=== PATIENT | female | born 1965 | race Caucasian/White ===

== ENCOUNTER 2016-11-16 16:50 | Emergency (ER) | payer OTHER ==
[2016-11-16 18:27] LABS: BASOPHIL 0.3 % (0-2); EOSINOPHIL 3.3 % (0-5); HCT 37.2 % (37.0-47.0); HGB 11.2 g/dl (12.5-16.0); LYMPHOCYTE 27.3 % (15-48); MCHC 30.1 g/dL (32.0-36.0); MCV 76.5 fL (78.0-100.0); MONOCYTE 10.4 % (0-12); NEUTROPHIL 58.7 % (41-80); PLT 292 K/uL (150-400); RBC 4.86 M/uL (4.20-5.40); RDW 19.2 % (11.5-14.0)
[2016-11-16 18:32] LABS: WBC 6.3 K/uL (4.0-10.5)
[2016-11-16 18:38] LABS: INR 1.07 (0.9-1.2); PROTHROMBIN TIME 13.5 SECONDS (11.7-14.0); PTT 29.2 SECONDS (23.2-31.4)
[2016-11-16 18:42] LABS: ALBUMIN 3.7 g/dL (3.5-5.0); BILIRUBIN - TOTAL 0.3 mg/dL (0.1-1.0); CREATININE 0.8 mg/dL (0.5-1.0); GLOBULIN (CALCULATION) 2.5 g/dL (2.2-4.2); MAGNESIUM 2.66 mg/dL (1.40-2.10); POTASSIUM 4.8 mmol/L (3.5-5.1); TOTAL PROTEIN 6.2 g/dL (6.4-8.3)
[2016-11-16 18:43] LABS: CKMB 1.58 ng/mL (0.97-4.94); MYOGLOBIN 25 ng/mL (26-65); PRO-BNP 227 pg/mL (0-125); TROPONIN T < 0.010 ng/mL
== END 2016-11-16 19:04 | disposition home or self-care (01) ==
LOC: FER 16:50
PROVIDERS: Emergency Medicine
DX: R07.89 Other chest pain (principal); Z88.0 Allergy status to penicillin; Z88.5 Allergy status to narcotic agent; Z88.6 Allergy status to analgesic agent
CPT/HCPCS: 36415; 71010; 80053; 82550; 82553; 83735; 83874; 83880; 84484; 85025; 85610; 85730; 93005

== ENCOUNTER 2020-09-29 20:45 | Emergency (ER) | payer OTHER ==
[~2020-09-29 20:45] MED LIST: ACETAMINOPHEN325 MG PO; BUSPAR5 MG PO; DOK PLUS TABLE1 EACH PO; ELIQUIS5 MG PO; FEOSOL325 MG PO; FLORASTOR250 MG PO; FOLIC ACID1 MG PO; HYDROCODON-ACE1 EAC2 PO; LASIX40 MG PO; LEXAPRO 10MG TA10 MG PO; MELATONIN10 M2 PO; METRONIDAZOLE500 MG PO; NEURONTIN300 MG PO; NORCO 5-325 TA1 EACH PO; PERCOCET 10/321 EACH PO; PERCOCET 5-3251 EACH PO; PREDNISONE 20MG20 MG PO; PROTONIX 40MG T40 MG PO; REGLAN10 MG PO; VIBRAMYCIN100 MG PO; VIRT-PHOS 250250 MG PO; VITAMIN B-121000 MC1 PO; ZOFRAN4 MG PO
[2020-09-29] MEDS ORDERED: NORCO 5-325 TA1 EACH PO (22:34)
== END 2020-09-29 22:53 | disposition home or self-care (01) ==
LOC: FER 20:45
DX: S46.912A Strain of unspecified muscle, fascia and tendon at shoulder and upper arm level, left arm, initial encounter (principal); I10 Essential (primary) hypertension; J44.9 Chronic obstructive pulmonary disease, unspecified; W50.0XXA Accidental hit or strike by another person, initial encounter; Y92.009 Unspecified place in unspecified non-institutional (private) residence as the place of occurrence of the external cause
CPT/HCPCS: 73030

== ENCOUNTER 2020-10-05 20:00 | Emergency (ER) | payer OTHER ==
[2020-10-05 21:38] LABS: BILIRUBIN NEGATIVE (NEGATIVE); BLOOD NEGATIVE Ery/uL (NEGATIVE); CLARITY CLEAR (CLEAR); COLOR YELLOW (YELLOW); GLUCOSE (U) NORMAL (NORMAL); LEUKOCYTES 2+ Leu/uL (NEGATIVE); NITRITE NEGATIVE (NEGATIVE); PROTEIN NEGATIVE (NEGATIVE); SPECIFIC GRAVITY >=1.030 (1.001-1.030); pH 6.5 (5.0-9.0)
[2020-10-05 21:49] LABS: AMORPHOUS URATES CRYSTALS LARGE
[2020-10-05 21:50] LABS: URINARY RBC RARE; URINARY WBC 20-50
[2020-10-05 21:51] LABS: BACTERIA TRACE
[2020-10-05] MEDS ORDERED: NORCO 5-325 TA1 EACH PO (22:17)
[2020-10-05] MEDS ORDERED: MACROBID100 MG PO (22:20)
== END 2020-10-05 22:36 | disposition home or self-care (01) ==
LOC: FER 20:00
PROVIDERS: Emergency Medicine
DX: S20.223A Contusion of bilateral back wall of thorax, initial encounter (principal); S30.0XXA Contusion of lower back and pelvis, initial encounter; G89.29 Other chronic pain; N39.0 Urinary tract infection, site not specified; Z88.0 Allergy status to penicillin; Z88.5 Allergy status to narcotic agent; Z88.6 Allergy status to analgesic agent; Z86.73 Personal history of transient ischemic attack (TIA), and cerebral infarction without residual deficits; Y04.2XXA Assault by strike against or bumped into by another person, initial encounter
CPT/HCPCS: 72128; 72131; 81001

== ENCOUNTER 2020-10-15 18:07 | Day surgery (SDCO) | payer OTHER ==
[~2020-10-15 18:07] MED LIST changes: +MACROBID100 MG PO
[2020-10-15 18:36] LABS: BASOPHIL 0.6 % (0-2); EOSINOPHIL 2.4 % (0-5); HCT 39.6 % (37.0-47.0); HGB 11.2 g/dl (12.5-16.0); LYMPHOCYTE 29.2 % (15-48); MCH 22.7 pg (25.0-31.0); MCHC 28.3 g/dL (32.0-36.0); MCV 80.3 fL (78.0-100.0); MONOCYTE 9.2 % (0-12); MPV 10.8 fL (6.0-9.5); NRBC 0; PLT 235 K/uL (150-400); RBC 4.93 M/uL (4.20-5.40); RDW 17.7 % (11.5-14.0); WBC 6.7 K/uL (4.0-10.5)
[2020-10-15 18:54] LABS: ALBUMIN 3.3 g/dL (3.4-5.0); ALKALINE PHOSHATASE 254 U/L (46-116); ALT 99 U/L (14-59); AST 26 U/L (15-37); BILIRUBIN - TOTAL 0.3 mg/dL (0.2-1.0); BUN 18 mg/dL (7-18); BUN/CREAT RATIO (CALC) 28.1 RATIO; C-REACTIVE PROTEIN <0.20 mg/dL (<=0.90); CHLORIDE 106 mmol/L (98-107); CO2 (BICARBONATE) 29 mmol/L (21-32); CREATININE 0.64 mg/dL (0.51-0.95); GLUCOSE 93 mg/dL (74-106); LDH 153 U/L (81-234); MAGNESIUM 2.8 mg/dL (1.8-2.4); POTASSIUM 5.4 mmol/L (3.5-5.1); TOTAL PROTEIN 7.3 g/dL (6.4-8.2)
[2020-10-15 19:04] LABS: LACTIC ACID 0.7 mmol/L (0.4-1.9)
[2020-10-15 19:10] LABS: PTT 29.6 SECONDS (22.2-34.7)
[2020-10-15 19:11] LABS: INR 1.03 (0.9-1.2); PROTHROMBIN TIME 12.8 SECONDS (11.4-13.6)
[2020-10-15 20:06] LABS: CORONAVIRUS 2019 SARS-COV-2 NEGATIVE (NEGATIVE); INFLUENZA A NAA NEGATIVE (NEGATIVE)
[2020-10-15 20:11] LABS: BILIRUBIN NEGATIVE (NEGATIVE); BLOOD NEGATIVE Ery/uL (NEGATIVE); CLARITY SLIGHTLY HAZY (CLEAR); COLOR YELLOW (YELLOW); GLUCOSE (U) NORMAL (NORMAL); LEUKOCYTES 2+ Leu/uL (NEGATIVE); NITRITE NEGATIVE (NEGATIVE); PROTEIN NEGATIVE (NEGATIVE)
[2020-10-15 20:12] LABS: AMPHETAMINES NEGATIVE (NEGATIVE); BARBITURATES NEGATIVE (NEGATIVE); ECSTASY (MDMA) NEGATIVE (NEGATIVE); MARIJUANA (THC) NEGATIVE (NEGATIVE); METHADONE NEGATIVE (NEGATIVE); OPIATES NEGATIVE (NEGATIVE); OXYCODONE NEGATIVE (NEGATIVE)
[2020-10-15 20:15] LABS: BACTERIA 1+
[2020-10-16 05:13] LABS: BASOPHIL 0.6 % (0-2); EOSINOPHIL 2.7 % (0-5); HCT 34.1 % (37.0-47.0); HGB 9.8 g/dl (12.5-16.0); LYMPHOCYTE 32.6 % (15-48); MCH 22.7 pg (25.0-31.0); MCHC 28.7 g/dL (32.0-36.0); MCV 78.9 fL (78.0-100.0); MONOCYTE 11.9 % (0-12); MPV 11.3 fL (6.0-9.5); NEUTROPHIL 51.9 % (41-80); NRBC 0; PLT 208 K/uL (150-400); RBC 4.32 M/uL (4.20-5.40); RDW 17.5 % (11.5-14.0); WBC 6.2 K/uL (4.0-10.5)
[2020-10-16 05:36] LABS: BUN/CREAT RATIO (CALC) 24.6 RATIO; CREATININE 0.65 mg/dL (0.51-0.95); POTASSIUM 4.6 mmol/L (3.5-5.1)
[2020-10-16] MEDS ORDERED: COLACE100 MG PO (22:53)
[2020-10-16] MEDS ORDERED: HYDROCODON-ACE1 EAC2 PO (22:54)
[2020-10-16] MEDS ORDERED: MELATONIN5 M2 PO (22:55)
--- NOTE | 2020-10-17 09:55 | NUR ---
10/17 Ms. Domínguez lives with her aunt. She does not have any DME. She does not have a PCC. A referral was made to [facility] for a rw. Brit Vela, torrie aiken scheduled an appointment with Domonique Jasmine NP, for 10/27/20. - Report given to MS Sangita, RN.
[2020-10-17] MEDS ORDERED: PERCOCET 10-321 EACH PO (10:11)
[2020-10-17] MEDS ORDERED: ASPIRIN EC81 MG PO (10:14)
[2020-10-17] MEDS ORDERED: CEFDINIR300 MG PO (10:14)
== END 2020-10-17 13:00 | disposition home or self-care (01) ==
LOC: FER 18:07 → FTCU 10-16 00:42 → FMS 10-17 05:29
PROVIDERS: Emergency Medicine; Nurse Practitioner; ADMIT Internal Medicine
DX: G45.9 Transient cerebral ischemic attack, unspecified (principal); G89.4 Chronic pain syndrome; I69.320 Aphasia following cerebral infarction; K21.9 Gastro-esophageal reflux disease without esophagitis; K56.41 Fecal impaction; M19.90 Unspecified osteoarthritis, unspecified site; N39.0 Urinary tract infection, site not specified; F31.9 Bipolar disorder, unspecified; R47.01 Aphasia; Z87.11 Personal history of peptic ulcer disease; Z87.891 Personal history of nicotine dependence; Z90.49 Acquired absence of other specified parts of digestive tract; Z90.710 Acquired absence of both cervix and uterus; Z98.1 Arthrodesis status; Z98.890 Other specified postprocedural states; Z96.652 Presence of left artificial knee joint; Z20.822 Contact with and (suspected) exposure to COVID-19; Z96.612 Presence of left artificial shoulder joint; Z98.84 Bariatric surgery status; Z82.0 Family history of epilepsy and other diseases of the nervous system; Z83.6 Family history of other diseases of the respiratory system; Z84.89 Family history of other specified conditions; Z82.49 Family history of ischemic heart disease and other diseases of the circulatory system; Z88.0 Allergy status to penicillin; Z88.6 Allergy status to analgesic agent; Z88.8 Allergy status to other drugs, medicaments and biological substances; Z79.899 Other long term (current) drug therapy; Z91.048 Other nonmedicinal substance allergy status; Z86.718 Personal history of other venous thrombosis and embolism
CPT/HCPCS: 36415; 36600; 70450; 70551; 71045; 80048; 80053; 80305; 81001; 82803; 82962; 83605; 83615; 83735; 84145; 84484; 85025; 85610; 85730; 86140; 87040; 87088; 93005; 96365; 96372; 96375; 97116; 97163; 97530-GP; G0378; G0480; J0696; J1170; J2270; J2405; J3010; J3030; J3370; J7030; J7040; J7050; Q9967; U0002

== ENCOUNTER 2020-12-14 14:27 | Emergency (ER) | payer OTHER ==
[~2020-12-14 14:27] MED LIST changes: +ASPIRIN EC81 MG PO; +CEFDINIR300 MG PO; +COLACE100 MG PO; +MELATONIN5 M2 PO; +PERCOCET 10-321 EACH PO
[2020-12-14] MEDS ORDERED: ROBAXIN500 MG PO (15:55)
== END 2020-12-14 17:42 | disposition home or self-care (01) ==
LOC: FER 14:27
DX: M54.5 Low back pain (principal); G89.29 Other chronic pain; J44.9 Chronic obstructive pulmonary disease, unspecified; F17.210 Nicotine dependence, cigarettes, uncomplicated; Z86.718 Personal history of other venous thrombosis and embolism; Z86.73 Personal history of transient ischemic attack (TIA), and cerebral infarction without residual deficits; Z87.19 Personal history of other diseases of the digestive system; Z98.890 Other specified postprocedural states; Z88.0 Allergy status to penicillin; Z88.2 Allergy status to sulfonamides; Z88.6 Allergy status to analgesic agent; Z88.5 Allergy status to narcotic agent
CPT/HCPCS: 99283

== ENCOUNTER 2020-12-21 01:49 | Emergency (ER) | payer OTHER ==
[~2020-12-21 01:49] MED LIST changes: +ROBAXIN500 MG PO
[2020-12-21 03:47] LABS: BILIRUBIN NEGATIVE (NEGATIVE); BLOOD NEGATIVE Ery/uL (NEGATIVE); CLARITY CLEAR (CLEAR); COLOR YELLOW (YELLOW); GLUCOSE (U) NORMAL (NORMAL); LEUKOCYTES 1+ Leu/uL (NEGATIVE); NITRITE NEGATIVE (NEGATIVE); PROTEIN NEGATIVE (NEGATIVE); SPECIFIC GRAVITY >=1.030 (1.001-1.030); pH 5.5 (5.0-9.0)
[2020-12-21 03:51] LABS: AMPHETAMINES NEGATIVE (NEGATIVE); BARBITURATES NEGATIVE (NEGATIVE); ECSTASY (MDMA) NEGATIVE (NEGATIVE); MARIJUANA (THC) NEGATIVE (NEGATIVE); METHADONE NEGATIVE (NEGATIVE); OPIATES NEGATIVE (NEGATIVE); OXYCODONE NEGATIVE (NEGATIVE)
[2020-12-21 03:55] LABS: BACTERIA 2+; URINARY WBC 20-50
[2020-12-21 04:08] LABS: BASOPHIL 0.6 % (0-2); EOSINOPHIL 4.6 % (0-5); HCT 31.8 % (37.0-47.0); HGB 9.1 g/dl (12.5-16.0); MCH 21.5 pg (25.0-31.0); MCHC 28.6 g/dL (32.0-36.0); MCV 75.2 fL (78.0-100.0); MONOCYTE 12.9 % (0-12); MPV 11.2 fL (6.0-9.5); NEUTROPHIL 50.5 % (41-80); NRBC 0; PLT 187 K/uL (150-400); RBC 4.23 M/uL (4.20-5.40); RDW 17.9 % (11.5-14.0); WBC 4.8 K/uL (4.0-10.5)
[2020-12-21 04:17] LABS: ALBUMIN 3.4 g/dL (3.4-5.0); BILIRUBIN - TOTAL 0.2 mg/dL (0.2-1.0); BUN/CREAT RATIO (CALC) 29.7 RATIO; CREATININE 0.64 mg/dL (0.51-0.95); POTASSIUM 4.2 mmol/L (3.5-5.1); TOTAL PROTEIN 6.4 g/dL (6.4-8.2)
[2020-12-21] MEDS ORDERED: NORCO 5-325 TA1 EACH PO ×2 (05:49→06:07)
== END 2020-12-21 06:27 | disposition home or self-care (01) ==
LOC: FER 01:49
PROVIDERS: Emergency Medicine
DX: S42.002A Fracture of unspecified part of left clavicle, initial encounter for closed fracture (principal); R55 Syncope and collapse; I69.354 Hemiplegia and hemiparesis following cerebral infarction affecting left non-dominant side; J44.9 Chronic obstructive pulmonary disease, unspecified; F17.200 Nicotine dependence, unspecified, uncomplicated; Z88.0 Allergy status to penicillin; Z88.6 Allergy status to analgesic agent; Z88.5 Allergy status to narcotic agent; Z88.8 Allergy status to other drugs, medicaments and biological substances; W19.XXXA Unspecified fall, initial encounter
CPT/HCPCS: 36415; 70450; 72125; 73030; 80053; 80305; 81001; 84484; 85025; 93005; G0480

== ENCOUNTER 2021-01-08 23:12 | Emergency (ER) | payer OTHER ==
[2021-01-09 00:40] LABS: BASOPHIL 0.9 % (0-2); EOSINOPHIL 4.1 % (0-5); HCT 37.3 % (37.0-47.0); HGB 10.5 g/dl (12.5-16.0); LYMPHOCYTE 31.6 % (15-48); MCH 20.7 pg (25.0-31.0); MCHC 28.2 g/dL (32.0-36.0); MCV 73.6 fL (78.0-100.0); MONOCYTE 13.4 % (0-12); MPV 10.6 fL (6.0-9.5); NEUTROPHIL 49.8 % (41-80); NRBC 0; PLT 226 K/uL (150-400); RBC 5.07 M/uL (4.20-5.40); RDW 18.3 % (11.5-14.0); WBC 5.3 K/uL (4.0-10.5)
[2021-01-09 00:55] LABS: ALBUMIN 3.6 g/dL (3.4-5.0); BILIRUBIN - TOTAL 0.3 mg/dL (0.2-1.0); BUN/CREAT RATIO (CALC) 30.4 RATIO; CREATININE 0.69 mg/dL (0.51-0.95); GLOBULIN (CALCULATION) 3.9 g/dL; POTASSIUM 4.2 mmol/L (3.5-5.1); TOTAL PROTEIN 7.5 g/dL (6.4-8.2)
[2021-01-09] MEDS ORDERED: PERCOCET 5-3251 EACH PO (03:52)
== END 2021-01-09 04:13 | disposition home or self-care (01) ==
LOC: FER 23:12
PROVIDERS: Emergency Medicine Emergency Medical Services
DX: R09.1 Pleurisy (principal); R07.89 Other chest pain; R91.8 Other nonspecific abnormal finding of lung field; R11.2 Nausea with vomiting, unspecified; Z85.038 Personal history of other malignant neoplasm of large intestine; Z85.43 Personal history of malignant neoplasm of ovary; Z86.73 Personal history of transient ischemic attack (TIA), and cerebral infarction without residual deficits; Z87.19 Personal history of other diseases of the digestive system; Z86.718 Personal history of other venous thrombosis and embolism; Z88.6 Allergy status to analgesic agent; Z88.0 Allergy status to penicillin; Z88.8 Allergy status to other drugs, medicaments and biological substances; Z88.5 Allergy status to narcotic agent
CPT/HCPCS: 36415; 71045; 71275; 80053; 84484; 85025; 85379; 93005; J1170; J2405; Q9967